=== PATIENT | male | born 1980 | race Caucasian/White ===

== ENCOUNTER 2023-08-04 11:47 | Emergency (ER) | payer OTHER ==
[~2023-08-04] VITALS: Ht 162.6 cm; Wt 59.0 kg
[2023-08-04 11:57] VITALS: BP_SYST 121; PULSE 96; RESP 19; TEMP 98.4; O2SAT 97
[2023-08-04 12:12] VITALS: BP_SYST 121; PULSE 96; RESP 19; TEMP 98.4; O2SAT 97
== END 2023-08-04 12:11 ==
LOC: SED 11:47
DX: Z02.89 Encounter for other administrative examinations (principal); Z79.899 Other long term (current) drug therapy
CPT/HCPCS: 99283